=== PATIENT | male | born 1975 | race Caucasian/White ===

== ENCOUNTER 2019-05-30 17:01 | Emergency (ER) | payer OTHER ==
[2019-05-30 17:08] VITALS: TEMP 96.8
[2019-05-30] MEDS ORDERED: ACETAMINOPHEN 500 MG TAB PO ONE (17:13)
[2019-05-30] MEDS ORDERED: amLODIPine BESYLATE 5 MG TAB PO ONE (17:13)
--- NOTE | 2019-05-30 17:18 | ED.PDOC ---
History of Present Illness - General Chief Complaint: Blood Pressure Problem Stated Complaint: elevated BP Time Seen by Provider: 05/30/19 17:13 - History of Present Illness Initial Comments: 44 yo M PMH HTN presents to ED in [place] escorted by law enforcement sent by nurse in group home for high blood pressure. Is taking lisinopril also was given HCTZ. Denies fever chills nausea vomiting diarrhea chest pain sob diaphoresis. No ch jada in diet bowel or bladder pt reports not resting well. Admits smoking also h/o drinking in the past admits FH HTN DM has no PMD for follow up no other c/o today. Allergies/Adverse Reactions: Allergies Penicillins Allergy (Verified 05/30/19 17:08) Home Medications: Ambulatory Orders Acetaminophen [Tylenol] 650 mg PO Q6H PRN #30 tab 05/30/19 Ibuprofen 600 mg PO Q6H PRN #20 tab 05/30/19 Lisinopril 20 mg PO BID 05/30/19 Prednisone 40 mg PO DAILY 5 Days #10 tab 05/30/19 Review of Systems - Review of Systems Constitutional: States: see HPI EENTM: States: see HPI Respiratory: States: see HPI Cardiology: States: see HPI Gastrointestinal/Abdominal: States: see HPI Genitourinary: States: see HPI Musculoskeletal: States: see HPI Skin: States: see HPI Neurological: States: see HPI Endocrine: States: see HPI Hematologic/Lymphatic: States: see HPI All other Systems: Reviewed and Negative Past Medical History (General) - Patient Medical History Hx Stroke: No Hx Congestive Heart Failure: No Hx Hypertension: Yes Hx Diabetes: No - Vaccination History Hx Influenza Vaccination: No - Social History Hx Tobacco Use: Yes Family Medical History - Family History Father Family History: Unknown Living Status: Unknown Physical Exam - Physical Exam General Appearance: No apparent distress Eye Exam: bilateral normal Ears, Nose, Throat: normal ENT inspection Neck: non-tender, full range of motion Respiratory: normal breath sounds Cardiovascular/Chest: regular rate, rhythm Gastrointestinal/Abdominal: non tender, soft Extremity: non-tender, normal inspection 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8 Sodium 136 Potassium 4.0 Chloride 102 Carbon Dioxide 22 Anion Gap 16.0 BUN 19 H Creatinine 0.74 BUN/Creatinine Ratio 25.7 H Random Glucose 99 Serum Osmolality 274.2 L Calcium 9.0 Total Bilirubin 0.3 AST 27 ALT 45 Alkaline Phosphatase 68 Serum Total Protein 7.4 Albumin 4.5 Globulin 2.9 Albumin/Globulin Ratio 1.6 05/30/19 18:25 Pt. reports headache on and off for the last 3 days at it's worst yesterday so today is not the worst headache of his life will d/c tylenol ibuprofen prednisone - Results/Orders Results/Orders: EKG-non specific TW changes No STEMI NSR 72bpm Laboratory Tests 05/30/19 05/30/19 05/30/19 17:23 17:23 17:55 WBC 9.6 RBC 4.79 Hgb 14.2 Hct 41.0 L MCV 85.8 MCH 29.6 MCHC 34.6 RDW 13.7 Plt Count 305 MPV 7.7 Absolute Neuts (auto) 5.70 Absolute Lymphs (auto) 2.70 Absolute Monos (auto) 0.90 H Absolute Eos (auto) 0.20 Absolute Basos (auto) 0.10 Neutrophils % 59.8 Lymphocytes % 28.0 Monocytes % 9.6 H Eosinophils % 1.8 Basophils % 0.8 Sodium 136 Potassium 4.0 Chloride 102 Carbon Dioxide 22 Anion Gap 16.0 BUN 19 H Creatinine 0.74 BUN/Creatinine Ratio 25.7 H Random Glucose 99 Serum Osmolality 274.2 L Calcium 9.0 Total Bilirubin 0.3 AST 27 ALT 45 Alkaline Phosphatase 68 Serum Total Protein 7.4 Albumin 4.5 Globulin 2.9 Albumin/Globulin Ratio 1.6 Urine Color Yellow Urine Appearance Clear Urine pH 6.0 Ur Specific Spencer 1.020 Urine Protein Negative Urine Glucose (UA) Negative Urine Ketones Negative Urine Blood Negative Urine Nitrite Negative Urine Bilirubin Negative Urine Urobilinogen 0.2 Ur Leukocyte Esterase Negative Urine RBC 0-1 Urine WBC 0 Ur Epithelial Cells 0 Urine Bacteria 0 Departure - Departure Clinical Impression: Generalized headache HTN (hypertension) Qualifiers: Hypertension type: unspecified Qualified Code(s): I10 - Essential (primary) hypertension Time of Disposition: 18:27 Disposition: [facility] Condition: Good Departure Forms: ED Discharge - Pt. Copy, Patient Portal Self Enrollment Instructions: DI for High Blood Pressure Diet: low salt diet Referrals: Angel Cote MD [Primary Care Provider] - 1-2 Days Prescriptions: Acetaminophen [Tylenol] 650 mg PO Q6H PRN #30 tab PRN Reason: Pain Ibuprofen 600 mg PO Q6H PRN #20 tab PRN Reason: Pain Prednisone 40 mg PO DAILY 5 Days #10 tab Home Medications: Ambulatory Orders Acetaminophen [Tylenol] 650 mg PO Q6H PRN #30 tab 05/30/19 Ibuprofen 600 mg PO Q6H PRN #20 tab 05/30/19 Lisinopril 20 mg PO BID 05/30/19 Prednisone 40 mg PO DAILY 5 Days #10 tab 05/30/19
[2019-05-30] MEDS ORDERED: DEXAMETHASONE INJ 10 MG/ML VIAL IM ONE (18:30)
[2019-05-30 18:50] VITALS: BP 179/123; O2SAT 98
== END 2019-05-30 18:50 ==
LOC: ER 17:01
DX: R51 Headache (principal); I10 Essential (primary) hypertension; Z87.891 Personal history of nicotine dependence; Z88.0 Allergy status to penicillin; Z79.899 Other long term (current) drug therapy
CPT/HCPCS: 36415; 80053; 81001; 85025; 93005; J1100

== ENCOUNTER 2019-06-03 18:39 | Emergency (ER) | payer OTHER ==
[2019-06-03] MEDS ORDERED: NITROGLYCERIN 0.4 MG 25 EA TAB SL ONE (18:50)
[2019-06-03] MEDS ORDERED: ASPIRIN (CHEWABLE) 81 MG TAB ONE (18:50)
[2019-06-03] MEDS ORDERED: SODIUM CHLORIDE 0.9% (FLUSH) 10 ML SYG IV PRN (18:50)
[2019-06-03] MEDS ORDERED: ASPIRIN (CHEWABLE) 81 MG TAB PO ONE (18:50)
[2019-06-03] MEDS: NITROGLYCERIN 0.4 MG 25 EA TAB SL PRN ×3 (18:54→19:14)
--- NOTE | 2019-06-03 18:56 | ED.PDOC ---
History of Present Illness - General Chief Complaint: Blood Pressure Problem Stated Complaint: elevated BP Time Seen by Provider: 06/03/19 18:40 Source: patient - History of Present Illness Initial Comments: 44 yo male with PMH of HTN who is brought in from retirement with cc of chest pain. 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 His BP was noted to be elevated at retirement and sent to ED for eval. Also reports new onset mild generalized hea dache and mild blurry vision and occasional ringing in his ears. Reports mild dyspnea as well. Denies any cough, fevers, chills, abd pain, n/v/d, edema. No known hx of CAD/DC or blood clots. Denies any illicit drug abuse hx. Pt seen here on 05/30 also for elevated BP and his Lisinopril & HCTZ dosages were increased. He was also on prednisone for 2 days for GONZALEZ but had to stop as it was making him jittery. Nitro Today/Relief: no nitro taken today Aspirin Treatment Today: no aspirin today Allergies/Adverse Reactions: Allergies Penicillins Allergy (Verified 05/30/19 17:08) Home Medications: Ambulatory Orders Acetaminophen [Tylenol] 650 mg PO Q6H PRN #30 tab 05/30/19 Ibuprofen 600 mg PO Q6H PRN #20 tab 05/30/19 Lisinopril 20 mg PO BID 05/30/19 Prednisone 40 mg PO DAILY 5 Days #10 tab 05/30/19 Review of Systems - Review of Systems Review of Systems: 06/03/19 18:56 as per HPI All other Systems: Reviewed and Negative Past Medical History (General) - Patient Medical History Hx Stroke: No Hx Congestive Heart Failure: No Hx Hypertension: Yes Hx Diabetes: No - Vaccination History Hx Influenza Vaccination: No Hx Pneumococcal Vaccination: No - Social History Hx Tobacco Use: Yes Family Medical History - Family History Father Family History: Unknown Living Status: Unknown Physical Exam - Physical Exam General Appearance: Alert, No apparent distress Eyes, Ears, Nose, Throat Exam: PERRL/EOMI, normal ENT inspection, pharynx normal Neck: non-tender, full range of motion, supple, normal inspection Respiratory: lungs clear, normal breath sounds, no respiratory distress, other - mild left chest wall ttp, reproduces pain sx's Cardiovascular/Chest: normal peripheral pulses, regular rate, rhythm, no edema, no gallop, no JVD, no murmur Gastrointestinal/Abdominal: non tender, soft, no organomegaly Extremity: normal range of motion, non-tender, normal inspection, no pedal edema, no calf tenderness, normal capillary refill 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 Pt reports GONZALEZ slightly worsened with NTG. -Labs pretty unremarkable, trop <0.02. CXR shows no acute processes per my read. -repeat EKG & Trop 06/03/19 21:16 -Repeat EKG unchanged, trop <0.02. BP increased to 200s/130s, labetalol 10 mg IV given and remains 190s/130s. Giving another dose of labetalol and will plan to transfer to higher LOC for cardiology consultation and for possible need for ICU given hypertensive emergency. 06/03/19 21:49 -BP improved to 170s/120s after 2nd dose. Pt w/o any further chest pain or other acute sx's, feeling much better. I recommended transfer for cardiology consultation and for likely IV antihypertensive drip but he refuses and also refuses admission here. Wants to just f/u with his doctor in the morning as he has been released from police custody now. Will sign AMA papers. Pt verbalizes risk of deterioration, [place], [place], . Klever Viera MD Billing #[id number] - EKG/XRAY/CT EKG: Sinus - NSR, HR 90, no ST elevations, q waves in V3 c/w possible prior septal infarct, LVH criteria present, intervals/axes normal, appears largely unchanged from 05/30/19 EKG - Additional EKG/XRAY/Consults EKG #2: Unchanged from - initial Departure - Departure Clinical Impression: Hypertensive emergency Time of Disposition: 21:59 Disposition: Left Against Medical Advice Condition: Serious Departure Forms: ED Discharge - Pt. Copy, Patient Portal Self Enrollment Instructions: DI for High Blood Pressure Diet: low salt diet Referrals: Angel Cote MD [Primary Care Provider] - 1-2 Days Home Medications: Ambulatory Orders Acetaminophen [Tylenol] 650 mg PO Q6H PRN #30 tab 05/30/19 Ibuprofen 600 mg PO Q6H PRN #20 tab 05/30/19 Lisinopril 20 mg PO BID 05/30/19 Prednisone 40 mg PO DAILY 5 Days #10 tab 05/30/19
--- NOTE | 2019-06-03 20:16 | RAD ---
EXAM: XR Chest, 1 View CLINICAL HISTORY: 44 years old Male; chest pain. TECHNIQUE: Frontal view of the chest. COMPARISON: No relevant prior studies available. FINDINGS: LUNGS: Lungs clear of focal infiltrate or mass. PLEURAL SPACE: No pleural fluid. No pneumothorax. HEART: Heart not enlarged. MEDIASTINUM: Unremarkable. BONES/JOINTS: No acute bony abnormality seen. VASCULATURE: Some uncoiling/ectasia of the thoracic aorta. IMPRESSION: - No acute cardiopulmonary pathology seen. Thank you for allowing us to participate in the care of this patient. Electronically signed by: Angel Falcon MD 06/03/2019 8:15 PM CDT
[2019-06-03] MEDS ORDERED: ACETAMINOPHEN 325 MG TAB PO ONE (20:35)
[2019-06-03] MEDS ORDERED: LABETALOL INJ 5 MG/ML VIAL IV ONE ×2 (20:52→21:16)
[2019-06-03] MEDS ORDERED: cloNIDine HCL 0.1 MG TAB PO ONE (21:48)
[2019-06-03 22:18] VITALS: BP 188/139; TEMP 97.9; O2SAT 97
== END 2019-06-03 22:04 | disposition left against medical advice (07) ==
LOC: ER 18:39
DX: I16.1 Hypertensive emergency (principal); R07.9 Chest pain, unspecified; R06.00 Dyspnea, unspecified; Z53.29 Procedure and treatment not carried out because of patient's decision for other reasons; Z87.891 Personal history of nicotine dependence; Z79.899 Other long term (current) drug therapy; Z88.0 Allergy status to penicillin

== ENCOUNTER 2020-01-27 04:35 | Emergency (ER) | payer OTHER ==
[2020-01-27] MEDS ORDERED: KETOROLAC TROMETHAMINE INJ 30 MG/ML VIAL IM ONE (04:43)
[2020-01-27] MEDS ORDERED: MORPHINE SULFATE INJ 10 MG/ML VIAL IM ONE (04:43)
[2020-01-27] MEDS ORDERED: fentaNYL PATCH 25 MCG/HR 1 EA PATCH TD ONE (04:44)
[2020-01-27 04:57] VITALS: TEMP 97.3
--- NOTE | 2020-01-27 05:11 | ED.PDOC ---
History of Present Illness - General Chief Complaint: General Time Seen by Provider: 01/27/20 04:39 Source: patient Exam Limitations: no limitations - History of Present Illness Initial Comments: The patient is a 44-year-old male presented emergency room secondary to uncontrolled pain primarily in his right femur fracture repair site. The patient has had persistent pain since the injury and surgery this past Wednesday. The patient arrived back home 2 days ago without any pain medications for it other than ibuprofen. The patient additionally has reportedly for rib fractures as well as a small distal fibula fracture on the right. Pulses are palpable. The patient does move the ankle and foot well. He does have significant pain with movement of the hip and the knee. This is expected. There is also near circumferential bruising around the thigh. It is not markedly tense. The patient apparently does have some decreased sensation in the foot that has been present ever since the injury itself. No overt evidence of any compartment syndrome. The patient did not require blood transfusion. He is not short of breath. He reports that the ankle and the ribs hurt some but the femur fracture repairs hurts the most. He denies any trauma since the initial trauma. No shortness of breath. He is cooperative he just reports that the pain is too much for him to handle without any additional medications. He is doing Lovenox injections for DVT prophylaxis. Timing/Duration: 1 week Severity: severe Improving Factors: immobilization, medication Worsening Factors: movement Associated Symptoms: denies symptoms Allergies/Adverse Reactions: Allergies Penicillins Allergy (Verified 05/30/19 17:08) Home Medications: Ambulatory Orders Acetaminophen [Tylenol] 650 mg PO Q6H PRN #30 tab 05/30/19 Ibuprofen 600 mg PO Q6H PRN #20 tab 05/30/19 Lisinopril 20 mg PO BID 05/30/19 Prednisone 40 mg PO DAILY 5 Days #10 tab 05/30/19 Tramadol HCl 50 mg PO Q8HR PRN #20 tab 01/27/20 Review of Systems - Review of Systems Constitutional: States: no symptoms reported EENTM: States: no symptoms reported Respiratory: States: no symptoms reported Cardiology: States: no symptoms reported Gastrointestinal/Abdominal: States: no symptoms reported Genitourinary: States: no symptoms reported Musculoskeletal: States: see HPI Skin: States: see HPI Neurological: States: see HPI Endocrine: States: no symptoms reported All other Systems: No Change from Baseline Past Medical History (General) - Patient Medical History Hx Seizures: No Hx Stroke: No Hx Dementia: No Hx Asthma: No Hx of COPD: No Hx Cardiac Disorders: No Hx Congestive Heart Failure: No Hx Pacemaker: No Hx Hypertension: Yes Hx Thyroid Disease: No Hx Diabetes: No Hx Gastroesophageal Reflux: No Hx Renal Disease: No Hx Cancer: No Hx of HIV: No Hx Hepatitis C: No Hx MRSA: No Surgical History: other - Vaccination History Hx Tetanus, Diphtheria Vaccination: Yes Hx Influenza Vaccination: No Hx Pneumococcal Vaccination: No - Social History Hx Tobacco Use: Yes Hx Chewing Tobacco Use: No Hx Substance Use: No Hx Substance Use Treatment: No Feels Threatened In Home Enviroment: No Feels Threatened In a Relationship: No Hx Physical Abuse: No Hx Emotional Abuse: No Hx Suspected Abuse: No - Female History Patient is a Female of Child Bearing Age (10 -59 yrs old): No - Triage Comment ED Triage Comment: The patient came into the ER via EMS for leg pain. He had jo-ann wraps around his right thigh and to his right calf. Upon removing the jo-ann wrap the patient had noted stapels from a recent surgery. The patient rated his pain a 10 on the pain scale. Family Medical History - Family History Father Family History: Unknown Living Status: Unknown Physical Exam - Physical Exam General Appearance: Alert, Anxious, Obvious distress Eye Exam: bilateral normal Ears, Nose, Throat: hearing grossly normal, normal pharynx Neck: full range of motion, supple Respiratory: lungs clear, normal breath sounds, no respiratory distress, no accessory muscle use Cardiovascular/Chest: normal peripheral pulses, regular rate, rhythm Peripheral Pulses: radial,right: 2+, radial,left: 2+ Gastrointestinal/Abdominal: non tender, soft Rectal Exam: deferred, other - Pelvis appears stable. Back Exam: no CVA tenderness, no vertebral tenderness Extremity: no calf tenderness, normal capillary refill, pedal edema - +1 to the right lower extremity. See history of present illness. 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 Strength and range of motion of the foot and ankle appear grossly preserved. He does have some tenderness to the lateral aspect of the right ankle. Skin Exam: other - Bruising to the thigh as above. Operative sites at the knee and at the hip show no drainage and no evidence of any overt infection. Comments: Vital Signs - 24 hr 01/27/20 04:40 Temperature 97.3 F L Pulse Rate [ 85 Pulse Ox] Respiratory 20 Rate Blood Pressure 159/108 [Left Arm] O2 Sat by Pulse 100 Oximetry Progress - Progress Progress: 01/27/20 05:13 The patient is a 44-year-old male presented emergency room secondary to right thigh pain 6 days status post a femur fracture repair. Pain is u ncontrolled as his only pain medication is ibuprofen. He does additionally apparently have rib fractures and a small ankle fracture also causing him pain. The pain is limiting his function and rehabilitation potential at this point. X-ray of the right femur shows expected repair. The patient had placed a 25 mcg fentanyl patch. This can stay in place for up to 72 hours. Obviously if the patient is becoming too drowsy or confused then he can pull this off. He also received a dose of Toradol. The patient will be written for short prescription of tramadol for pain control additionally. He does need to avoid taking tramadol for the next 12 hours while the fentanyl patch is ramping up. He does also need to continue take stool softeners and his injections to prevent blood clots. He needs to ambulate carefully and do his exercises. He needs to keep follow-up with his trauma surgeon. ER warnings are given. darinel cecilia [id number] - Results/Orders Results/Orders: X-ray of the right femur and repair show appropriate repair. I believe the patient does have a patella fracture however it does look old and the patellar complex is obviously intact clinically. Departure - Departure Clinical Impression: Postoperative pain of right knee Disposition: Discharge to Home or Self Care Condition: Fair Departure Forms: ED Discharge - Pt. Copy, Patient Portal Self Enrollment Diet: regular diet Activity: increase activity as tolerated Referrals: Angel Cote MD [Primary Care Provider] - 1-2 Weeks Prescriptions: Tramadol HCl 50 mg PO Q8HR PRN #20 tab PRN Reason: Moderate Pain Home Medications: Ambulatory Orders Acetaminophen [Tylenol] 650 mg PO Q6H PRN #30 tab 05/30/19 Ibuprofen 600 mg PO Q6H PRN #20 tab 05/30/19 Lisinopril 20 mg PO BID 05/30/19 Prednisone 40 mg PO DAILY 5 Days #10 tab 05/30/19 Tramadol HCl 50 mg PO Q8HR PRN #20 tab 01/27/20 Additional Instructions: The patient is a 44-year-old male presented emergency room secondary to right thigh pain 6 days status post a femur fracture repair. Pain is uncontrolled as his only pain medication is ibuprofen. He does additionally apparently have rib fractures and a small ankle fracture also causing him pain. The pain is limiting his function and rehabilitation potential at this point. X-ray of the right femur shows expected repair. The patient had placed a 25 mcg fentanyl patch. This can stay in place for up to 72 hours. Obviously if the patient is becoming too drowsy or confused then he can pull this off. He also received a dose of Toradol. The patient will be written for short prescription of tramadol for pain control additionally. He does need to avoid taking tramadol for the next 12 hours while the fentanyl patch is ramping up. He does also need to continue take stool softeners and his injections to prevent blood clots. He needs to ambulate carefully and do his exercises. He needs to keep follow-up with his trauma surgeon. ER warnings are given.
--- NOTE | 2020-01-27 05:35 | RAD ---
CLINICAL HISTORY: pain at op site COMPARISON: None. TECHNIQUE: XR FEMUR 2 VIEWS 01/27/2020 4:45 AM CDT FINDINGS: There is an intramedullary sandra within the femur transfixing a mid femoral shaft fracture. Joint spaces are preserved. Soft tissues are unremarkable. IMPRESSION: Expected postoperative appearance. Electronically signed by: Esteban Moses MD 01/27/2020 5:34 AM CDT
[2020-01-27 05:43] VITALS: BP 150/87; O2SAT 98
== END 2020-01-27 06:00 | disposition home or self-care (01) ==
LOC: ER 04:35
DX: G89.18 Other acute postprocedural pain (principal); M25.561 Pain in right knee; I10 Essential (primary) hypertension; F17.200 Nicotine dependence, unspecified, uncomplicated
CPT/HCPCS: 73551; J1885; J2270

== ENCOUNTER 2020-02-02 12:02 | Emergency (ER) | payer OTHER ==
[2020-02-02] MEDS ORDERED: MORPHINE SULFATE INJ 10 MG/ML VIAL IM ONE (12:35)
[2020-02-02] MEDS ORDERED: METOCLOPRAMIDE HCL 5 MG TAB PO ONE (12:36)
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
[2020-02-02 13:21] VITALS: BP 131/76; TEMP 98.3; O2SAT 98
== END 2020-02-02 13:05 | disposition home or self-care (01) ==
LOC: ER 12:02
DX: M79.604 Pain in right leg (principal); S72.91XA Unspecified fracture of right femur, initial encounter for closed fracture; I10 Essential (primary) hypertension; Z87.891 Personal history of nicotine dependence; W19.XXXA Unspecified fall, initial encounter